=== PATIENT | female | born 1955 | race Caucasian/White ===

== ENCOUNTER → 2017-11-23 | Outpatient (CLI) | payer OTHER ==
[2017-11-23 11:32] LABS: BASOPHILS ABSOLUTE AUTO 0.07 K/mm3 (0.00-0.23); BASOPHILS PERCENT AUTO 1 % (0-2); EOSINOPHILS ABSOLUTE AUTO 0.04 K/mm3 (0.00-0.68); EOSINOPHILS PERCENT AUTO 1 % (0-6); Hematocrit 42.1 % (33.0-51.0); Hemoglobin 14.5 g/dL (11.5-16.0); IMMATURE GRAN ABSOLUTE AUTO 0.04 K/mm3 (0.00-0.10); IMMATURE GRAN PERCENT AUTO 1 % (0-1); LYMPHOCYTES ABSOLUTE AUTO 0.71 K/mm3 (0.84-5.20); LYMPHOCYTES PERCENT AUTO 8 % (21-46); MONOCYTES ABSOLUTE AUTO 0.31 K/mm3 (0.16-1.47); MONOCYTES PERCENT AUTO 4 % (4-13); Mean Corpuscular HGB Conc 34.4 g/dL (31.5-36.5); Mean Corpuscular Volume 96 fL (80-100); Mean Platelet Volume 9.2 fL (9.1-12.4); NEUTROPHILS ABSOLUTE AUTO 7.64 K/mm3 (1.96-9.15); NEUTROPHILS PERCENT AUTO 87 % (41-73); Platelet Count 265 K/mm3 (150-400); RDW Standard Deviation 46.1 fL (35.1-46.3); White Blood Cell Count 8.81 K/mm3 (4.00-11.30)
[2017-11-23 11:36] LABS: Anion Gap 12 mmol/L (6-16); Blood Urea Nitrogen 5 mg/dL (8-24); CO2, Blood 29 mmol/L (21-32); Calcium, Blood 9.4 mg/dL (8.5-10.1); Chloride, Blood 101 mmol/L (98-108); Creatinine, Blood 0.71 mg/dL (0.40-1.00); Glomerular Filtration Rate >60 (60-); Glucose, Blood 113 mg/dL (70-99); Potassium, Blood 3.6 mmol/L (3.5-5.5); Sodium, Blood 142 mmol/L (136-145)
== END | disposition home or self-care (01) ==
LOC: LAB EV 11:26 → LAB SHORT 11:26
PROVIDERS: Physician Assistant Surgical
DX: R42 Dizziness and giddiness (principal)
CPT/HCPCS: 80048; 85025

== ENCOUNTER 2024-10-03 17:29 | Emergency (ER) | payer MEDICARE ==
[~2024-10-03] VITALS: Ht 149.9 cm; Wt 56.7 kg
[2024-10-03 17:53] LABS: BASOPHILS ABSOLUTE AUTO 0.07 K/mm3 (0.00-0.23); BASOPHILS PERCENT AUTO 1 % (0-2); EOSINOPHILS ABSOLUTE AUTO 0.05 K/mm3 (0.00-0.68); EOSINOPHILS PERCENT AUTO 1 % (0-6); Hematocrit 31.1 % (33.0-51.0); Hemoglobin 9.3 g/dL (11.5-16.0); IMMATURE GRAN ABSOLUTE AUTO 0.03 K/mm3 (0.00-0.10); IMMATURE GRAN PERCENT AUTO 0 % (0-1); LYMPHOCYTES PERCENT AUTO 17 % (21-46); MONOCYTES PERCENT AUTO 6 % (4-13); Mean Corpuscular HGB 29.5 pg (26.0-34.0); Mean Corpuscular HGB Conc 29.9 g/dL (31.5-36.5); Mean Corpuscular Volume 99 fL (80-100); Mean Platelet Volume 9.6 fL (9.1-12.4); NEUTROPHILS ABSOLUTE AUTO 5.43 K/mm3 (1.96-9.15); NEUTROPHILS PERCENT AUTO 76 % (41-73); Platelet Count 215 K/mm3 (150-400); RDW Coefficient Variation 13.7 % (11.7-14.2); RDW Standard Deviation 49.2 fL (35.1-46.3); Red Blood Cell Count 3.15 M/mm3 (3.80-5.20); White Blood Cell Count 7.18 K/mm3 (4.00-11.30)
[2024-10-03 18:15] LABS: Albumin/Globulin Ratio 0.9 (0.8-1.8); Bilirubin, Total 0.3 mg/dL (0.1-1.0); Bun/Creatinine Ratio 10.5 (12.0-20.0); Calcium, Blood 8.9 mg/dL (8.5-10.1); Creatinine, Blood 0.67 mg/dL (0.40-1.00); Globulin, Blood 3.3 g/dL (2.2-4.0); Potassium, Blood 3.4 mmol/L (3.5-5.5); Total Protein, Blood 6.3 g/dL (6.4-8.2)
[2024-10-03] MEDS ORDERED: LIPITOR80 MG PO (18:36)
[2024-10-03] MEDS ORDERED: IPRAT-ALBUT 0.5-3 ML IH (18:36)
[2024-10-03] MEDS ORDERED: FOLI1 PO (18:36)
[2024-10-03] MEDS ORDERED: LOSA50 PO (18:36)
[2024-10-03 18:37] LABS: Influenza A, PCR NEGATIVE (NEGATIVE); Influenza B, PCR NEGATIVE (NEGATIVE); Resp Syncytial Virus, PCR NEGATIVE (NEGATIVE); SARS-Cov-2 (COVID-19) PCR, MMC NEGATIVE (NEGATIVE)
[2024-10-03] MEDS ORDERED: B-1100 M1 PO (18:37)
[2024-10-03] MEDS ORDERED: ALBU8HFA2 INH (18:37)
[2024-10-03] MEDS ORDERED: Albuterol 2.5 MG/3 ML VIAL INH SCH (19:25)
[2024-10-03] MEDS ORDERED: MethylPREDNISolone Sod Succ 125 MG Vial IV ONE (19:25)
[2024-10-03] MEDS ORDERED: Prednisone20 MG PO (22:02)
[2024-10-03] MEDS ORDERED: HYDHCL25 PO (22:02)
[2024-10-03 23:37] VITALS: BP 138/84
[2024-10-04] MEDS ORDERED: SULFAMETHOXAZO1 EAC1 PO (15:55)
[2024-10-05] MEDS ORDERED: HYDR10 PO (12:42)
== END 2024-10-04 00:11 | disposition home or self-care (01) ==
LOC: ER 17:29
PROVIDERS: Emergency Medicine
DX: J44.9 Chronic obstructive pulmonary disease, unspecified (principal)
CPT/HCPCS: 0241U; 71045; 80053; 83880; 84484; 85025; 93005; 93010; 96374; 99285-25; J2919

== ENCOUNTER 2024-10-04 13:02 | Inpatient (IN) | payer OTHER ==
[~2024-10-04] VITALS: Ht 160 cm; Wt 56.1 kg
[~2024-10-04 13:02] MED LIST: ALBU8HFA2 INH; B-1100 M1 PO; FOLI1 PO; HYDHCL25 PO; IPRAT-ALBUT 0.5-3 ML IH; LIPITOR80 MG PO; LOSA50 PO; Prednisone20 MG PO
[2024-10-04 14:36] LABS: Base Excess Venous 5.5 mmol/L; Bicarbonate Venous 27.4 mmol/L (24.0-30.0); PCO2 Venous 87.2 mmHg (38-42)
[2024-10-04 14:38] LABS: BASOPHILS ABSOLUTE AUTO 0.03 K/mm3 (0.00-0.23); BASOPHILS PERCENT AUTO 1 % (0-2); EOSINOPHILS ABSOLUTE AUTO 0.02 K/mm3 (0.00-0.68); EOSINOPHILS PERCENT AUTO 1 % (0-6); Hematocrit 34.9 % (33.0-51.0); Hemoglobin 10.6 g/dL (11.5-16.0); IMMATURE GRAN PERCENT AUTO 3 % (0-1); LYMPHOCYTES ABSOLUTE AUTO 0.37 K/mm3 (0.84-5.20); LYMPHOCYTES PERCENT AUTO 10 % (21-46); MONOCYTES ABSOLUTE AUTO 0.19 K/mm3 (0.16-1.47); MONOCYTES PERCENT AUTO 5 % (4-13); Mean Corpuscular HGB 29.4 pg (26.0-34.0); Mean Corpuscular HGB Conc 30.4 g/dL (31.5-36.5); Mean Corpuscular Volume 97 fL (80-100); NEUTROPHILS ABSOLUTE AUTO 3.09 K/mm3 (1.96-9.15); NEUTROPHILS PERCENT AUTO 81 % (41-73); RDW Coefficient Variation 13.7 % (11.7-14.2); RDW Standard Deviation 49.1 fL (35.1-46.3)
[2024-10-04 14:53] LABS: Albumin/Globulin Ratio 0.8 (0.8-1.8); Bilirubin, Total 0.2 mg/dL (0.1-1.0); Bun/Creatinine Ratio 12.1 (12.0-20.0); Creatinine, Blood 1.16 mg/dL (0.40-1.00); Globulin, Blood 3.8 g/dL (2.2-4.0); Potassium, Blood 4.6 mmol/L (3.5-5.5); Total Protein, Blood 6.8 g/dL (6.4-8.2)
[2024-10-04 14:57] LABS: Mean Platelet Volume 10.3 fL (9.1-12.4); Platelet Count 224 K/mm3 (150-400)
[2024-10-04] MEDS ORDERED: Azithromycin 500 MG in NS 250 ML IV ONE (15:15)
[2024-10-04] MEDS ORDERED: CefTRIAXone Sodium 1,000 MG in NS 100 ML IV ONE (15:15)
[2024-10-04] MEDS ORDERED: SULFAMETHOXAZO1 EAC1 PO (15:55)
[2024-10-04] MEDS ORDERED: Ipratropium/Albuterol SulF 2.5-0.5MG/3 ML Amp INH SCH (16:10)
[2024-10-04] MEDS ORDERED: Albuterol 2.5 MG/3 ML VIAL INH PRN (16:10)
[2024-10-04 16:36] LABS: Base Excess Venous 6.5 mmol/L; Bicarbonate Venous 29.2 mmol/L (24.0-30.0); PCO2 Venous 60.4 mmHg (38-42); pH Blood Venous 7.34 (7.34-7.37)
[2024-10-04] MEDS ORDERED: MethylPREDNISolone Sod Succ 125 MG Vial IV SCH (18:00)
[2024-10-04 18:19] VITALS: BP 109/55
--- NOTE | 2024-10-04 18:52 | NUR ---
ASSUMPTION OF CARE PATIENT ARRIVED TO UNIT AT 1814 VIA GURNEY FROM ER. PATIENT IS A&O X2, CONFUSED AT BASELINE, IS AT BEDSIDE. PATIENT ON BIPAP, FIO2 30%, SPO2 >90%. TELE, NORMAL SINUS IN THE 70'S. PATIENT DENIES PRESENCE CHEST PAIN OR PRESSURE AT THIS TIME. DENIES ABODMINAL PAIN OR NAUSEA. PUREWICK CATHETER IN PLACE, DRAINING TO SUCTION. PRESENCE OF PRESSURE INJURY NOTED ON COCCYX AND LEFT ELBOW, MEPILEX DRESSINGS IN PLACE AND INTACT, PICTURES IN CHART. PATIENT REPORTS NEUROPATHY IN BILATERAL FEET. PATIENT UNABLE TO REPOSITION OR AMBULATE INDEPENDENTLY. BED IN LOWEST POSITION, BED ALARM ON, CALL LIGHT WITHIN REACH.
[2024-10-04 19:25] LABS: Adenovirus Not Detected (NOT DETECT); Bordetella pertussis Not Detected (NOT DETECT); Chlamydophila pneumoniae Not Detected (NOT DETECT); Coronavirus 229E Not Detected (NOT DETECT); Coronavirus HKU1 Not Detected (NOT DETECT); Coronavirus NL63 Not Detected (NOT DETECT); Coronavirus OC43 Not Detected (NOT DETECT); Human Metapneumovirus Not Detected (NOT DETECT); Human Rhinovirus/Enterovirus Not Detected (NOT DETECT); Influenza A/2009-H1 Not Detected (NOT DETECT); Influenza A/H1 Not Detected (NOT DETECT); Influenza A/H3 Not Detected (NOT DETECT); Influenza B Not Detected (NOT DETECT); Mycoplasma pneumoniae Not Detected (NOT DETECT); Parainfluenza Virus 1 Not Detected (NOT DETECT); Parainfluenza Virus 2 Not Detected (NOT DETECT); Parainfluenza Virus 3 Not Detected (NOT DETECT); Parainfluenza Virus 4 Not Detected (NOT DETECT); Respiratory Syncytial Virus Not Detected (NOT DETECT); SARS-Cov-2 (COVID-19), BioFire Not Detected (NOT DETECT)
[2024-10-04 19:36] VITALS: BP 118/68
--- NOTE | 2024-10-04 19:47 | NUR ---
ASSUMED CARE OF THIS PATIENT AT 1900. PT IS SITTING UP IN BED WITH BIPAP ON SATURATION IS 98% ON CONTINUS PULSE OX. PT WAS GIVEN SHIFT BREAK FROM BIPAP TO CLEAN MOUTH OUT AND APPLY CHAPSTICK PT IS CURRENTLY NPO. SHE SEEMS TO BE JESSIE BIPAP WELL, IS AT BEDSIDE HELPING TO REORIENT PATIENT AT TIMES. SHE IS ORIENTED TO SELF AND ONLY. CALL LIGHT IS IN REACH.
[2024-10-04] MEDS ORDERED: Atorvastatin 40 MG Tab PO SCH (21:00)
[2024-10-04] MEDS ORDERED: Lactobacil 2-S.Thermo-Bifido 1 1 Cap PO SCH (21:00)
[2024-10-04 23:43] LABS: Base Excess Venous 6.9 mmol/L; Bicarbonate Venous 29.8 mmol/L (24.0-30.0); PCO2 Venous 50.8 mmHg (38-42)
[2024-10-05 00:06] VITALS: BP 106/52
[2024-10-05 03:38] LABS: Base Excess Venous 6.4 mmol/L; Bicarbonate Venous 29.3 mmol/L (24.0-30.0); PCO2 Venous 61.2 mmHg (38-42); pH Blood Venous 7.33 (7.34-7.37)
[2024-10-05 03:39] LABS: BASOPHILS ABSOLUTE AUTO 0.01 K/mm3 (0.00-0.23); BASOPHILS PERCENT AUTO 0 % (0-2); EOSINOPHILS PERCENT AUTO 0 % (0-6); Hematocrit 28.9 % (33.0-51.0); Hemoglobin 8.8 g/dL (11.5-16.0); IMMATURE GRAN ABSOLUTE AUTO 0.02 K/mm3 (0.00-0.10); IMMATURE GRAN PERCENT AUTO 0 % (0-1); LYMPHOCYTES ABSOLUTE AUTO 0.32 K/mm3 (0.84-5.20); LYMPHOCYTES PERCENT AUTO 4 % (21-46); MONOCYTES ABSOLUTE AUTO 0.07 K/mm3 (0.16-1.47); MONOCYTES PERCENT AUTO 1 % (4-13); Mean Corpuscular HGB 29.6 pg (26.0-34.0); Mean Corpuscular HGB Conc 30.4 g/dL (31.5-36.5); Mean Corpuscular Volume 97 fL (80-100); Mean Platelet Volume 10.1 fL (9.1-12.4); NEUTROPHILS ABSOLUTE AUTO 6.86 K/mm3 (1.96-9.15); NEUTROPHILS PERCENT AUTO 94 % (41-73); Platelet Count 199 K/mm3 (150-400); RDW Coefficient Variation 13.8 % (11.7-14.2); RDW Standard Deviation 49.2 fL (35.1-46.3); Red Blood Cell Count 2.97 M/mm3 (3.80-5.20); White Blood Cell Count 7.28 K/mm3 (4.00-11.30)
[2024-10-05 03:43] VITALS: BP 102/59
[2024-10-05 03:59] LABS: Albumin, Blood 2.7 g/dL (3.4-5.0); Albumin/Globulin Ratio 0.9 (0.8-1.8); Bilirubin, Total 0.3 mg/dL (0.1-1.0); Bun/Creatinine Ratio 15.1 (12.0-20.0); Calcium, Blood 8.7 mg/dL (8.5-10.1); Creatinine, Blood 1.59 mg/dL (0.40-1.00); Globulin, Blood 3.1 g/dL (2.2-4.0); Potassium, Blood 4.3 mmol/L (3.5-5.5); Total Protein, Blood 5.8 g/dL (6.4-8.2)
--- NOTE | 2024-10-05 06:17 | NUR ---
TO ASSIST WITH KEEPING PT COMFORTABLE AND REORIENTING HER TO PLACE AND SITUATION. VBG'S ARE IMPROVING, SHE TOOK A BREAK OFF THE BIPAP AND CO2 DID HOWEVER RISE AGAIN AND SHE WAS PLACED BACK ON BIPAP. PT JESSIE BIPAP WELL AND HAS BEEN ABLE TO REST ON AND OFF BETWEEN CARES. PT WEARS 2 LITERS NC AT BASELINE. SHE HAS A REDDENED AREA ON HER COCCYX THAT IS BLANCHABLE MEPELEX DRESSING WAS PLACED ON IT AND Q2 REPOSTIONING WAS DONE T/O THE NIGHT. MEPELEX DRESSING ALSO OVER L ELBOW WERE PT HAD/HAS MERSA. PT IS ON CONTACT PERCAUSTIONS. PURWICK IS IN PLACE DRAINING TO SUCTION. SCD ARE IN PLACE. BED IN LOWEST POSTION, SIDERAILS UP X3, CALL LIGHT IN REACH. WILL CONTINUE WITH PLAN OF CARE AND REPORT TO ONCOMING RN.
[2024-10-05 07:37] VITALS: BP 118/63
[2024-10-05] MEDS ORDERED: Azithromycin 500 MG in NS 250 ML IV SCH (09:00)
[2024-10-05] MEDS ORDERED: Enoxaparin 40 MG/0.4 ML SYR SC SCH (09:00)
[2024-10-05] MEDS ORDERED: Losartan Potassium 50 MG Tab PO SCH (09:00)
[2024-10-05] MEDS ORDERED: CefTRIAXone Sodium 1,000 MG in NS 100 ML IV SCH (09:00)
[2024-10-05] MEDS ORDERED: Furosemide 10 MG/ML 4ML Vial IV SCH (10:00)
[2024-10-05 11:21] VITALS: BP 121/55
[2024-10-05] MEDS ORDERED: HYDR10 PO (12:42)
[2024-10-05] MEDS ORDERED: Furosemide 10 MG / ML 2ML Vial IV SCH (14:00)
[2024-10-05 15:34] VITALS: BP 116/63
--- NOTE | 2024-10-05 16:56 | NUR ---
SHIFT SUMMARY PT REMAINS ALERT AND ORIENTED TO SELF, PLACE AND FAMILY. PT HAS BEEN OFF BIPAP SINCE ASSUMPTION OF CARE AND MAINTAINING SATS >90% ON 2L NC. HR HAS BEEN NSR. PT HAS DENIED ANY PAIN THIS SHIFT. PT HAS BEEN INCONTINENT OF URINE AND PUREWICK DEVICE IN PLACE. PT PROVIDED BED BATH TODAY. SPOUSE AT BEDSIDE MOST OF SHIFT. WILL CONTINUE PLAN OF CARE AND REPORT OFF TO ONCOMING RN
[2024-10-05 19:57] VITALS: BP 125/59
[2024-10-06 00:05] VITALS: BP 115/57
[2024-10-06] MEDS ORDERED: Zolpidem Tartrate 5 MG Tab PO PRN (01:20)
[2024-10-06 03:39] VITALS: BP 121/58
[2024-10-06 04:03] LABS: BASOPHILS PERCENT AUTO 0 % (0-2); EOSINOPHILS PERCENT AUTO 0 % (0-6); Hematocrit 26.5 % (33.0-51.0); Hemoglobin 8.3 g/dL (11.5-16.0); IMMATURE GRAN ABSOLUTE AUTO 0.03 K/mm3 (0.00-0.10); IMMATURE GRAN PERCENT AUTO 0 % (0-1); LYMPHOCYTES ABSOLUTE AUTO 0.25 K/mm3 (0.84-5.20); LYMPHOCYTES PERCENT AUTO 4 % (21-46); MONOCYTES ABSOLUTE AUTO 0.11 K/mm3 (0.16-1.47); MONOCYTES PERCENT AUTO 2 % (4-13); Mean Corpuscular HGB 28.9 pg (26.0-34.0); Mean Corpuscular HGB Conc 31.3 g/dL (31.5-36.5); Mean Platelet Volume 10.5 fL (9.1-12.4); NEUTROPHILS ABSOLUTE AUTO 6.39 K/mm3 (1.96-9.15); NEUTROPHILS PERCENT AUTO 94 % (41-73); Platelet Count 225 K/mm3 (150-400); RDW Standard Deviation 47.2 fL (35.1-46.3); Red Blood Cell Count 2.87 M/mm3 (3.80-5.20); White Blood Cell Count 6.78 K/mm3 (4.00-11.30)
[2024-10-06 04:27] LABS: Bun/Creatinine Ratio 18.5 (12.0-20.0); Calcium, Blood 8.5 mg/dL (8.5-10.1); Creatinine, Blood 1.84 mg/dL (0.40-1.00); Potassium, Blood 3.4 mmol/L (3.5-5.5)
[2024-10-06 04:29] LABS: Mean Corpuscular Volume 92 fL (80-100)
--- NOTE | 2024-10-06 05:13 | NUR ---
NURSE NOTE DR. JOSEPH CALLED VIA PHONE ABOUT K 3.4, SHE WILL REFER TO DAY TEAM FOR REPLACEMENT. NO ORDERS AT THIS TIME.
--- NOTE | 2024-10-06 05:56 | NUR ---
SHIFT SUMMARY PT IS A+O X2 (PERSON AND SELF) APOUSE HAS REMAINED AT BEDSIDE T/O THE NIGHT TO REORIENTE HER AND ASSIST WITH BIPAP COMPLIANCE. PT HAS BEEN ON BIPAP MOST OF THE NIGHT W/ BREAKS FOR WATER AND ORAL CARE. SATS ABOVE 90% DURING SHIFT, SHE IS CURRENTLY ON 1L NC SATTING AT 93% SITTING UP IN BED WATCHING TV. SHE HAS SLEPT ON AND OFF T/O THE NIGHT. TELE IN PLACE SHOWING NSR RATE OF 79. PURWICK AND BRIEF CHANGED, HENNY CARE PROVIDED. PT IS INCONTIENT AND PURWICK IS IN PLACE W/ 340 mls OUT. BRIEF WAS WET WHEN CHANGES EARLIER IN THE SHIFT. DENIES PAIN OF ANY KIND. BED IN LOWEST POSTION, SIDE RAILS UP X2, WILL CONTINUE WITH PLAN OF CARE AND REPORT TO ONCOMING RN.
[2024-10-06 08:11] VITALS: BP 141/65
[2024-10-06] MEDS ORDERED: Spironolactone 12.5 MG TAB PO SCH (09:00)
[2024-10-06] MEDS ORDERED: Empagliflozin 10 MG TAB PO SCH (09:00)
[2024-10-06] MEDS ORDERED: Enoxaparin 30 MG/0.3 ML SYR SC SCH (09:00)
[2024-10-06 11:37] VITALS: BP 157/70
[2024-10-06 15:11] VITALS: BP 134/63
--- NOTE | 2024-10-06 16:56 | NUR ---
SHIFT SUMMARY MENTATION REMAINS UNCHANGED. BP STABLE. O2 SATS REMAIN ABOVE 90% ON 1L NC. PT HAS BEEN OFF OF BIPAP ALL SHIFT. PT ABLE TO REPOSITION HERSELF IN THE BED AT TIMES. PT HAD LARGE INCONTINENT BM THIS AM AND BED BATH AND LINEN CHANGE PROVIDED. PT HAS BEEN INCONTINENT OF URINE ALL SHIFT WITH PUREWICK DEVICE IN PLACE. SPOUSE AT BEDSIDE ALL SHIFT. WILL CONTINUE PLAN OF CARE AND REPORT OFF TO ONCOMING RN
[2024-10-06 20:54] VITALS: BP 129/63
[2024-10-06] MEDS ORDERED: Atorvastatin 40 MG Tab PO SCH (21:00)
[2024-10-06] MEDS ORDERED: Doxycycline Hyclate 100 MG TAB PO SCH (21:00)
[2024-10-06] MEDS ORDERED: MethylPREDNISolone Sod Succ 125 MG Vial IV SCH (21:00)
[2024-10-07 00:39] VITALS: BP 127/64
[2024-10-07 04:10] LABS: Base Excess Venous 15.5 mmol/L; PCO2 Venous 42.5 mmHg (38-42)
[2024-10-07 04:11] LABS: pH Blood Venous 7.56 (7.34-7.37)
[2024-10-07 04:32] VITALS: BP 143/80
[2024-10-07 04:52] LABS: Hematocrit 26.9 % (33.0-51.0); Hemoglobin 8.5 g/dL (11.5-16.0); Mean Corpuscular HGB 29.1 pg (26.0-34.0); Mean Corpuscular HGB Conc 31.6 g/dL (31.5-36.5); Mean Corpuscular Volume 92 fL (80-100); Mean Platelet Volume 10.2 fL (9.1-12.4); Platelet Count 227 K/mm3 (150-400); RDW Coefficient Variation 14.2 % (11.7-14.2); RDW Standard Deviation 48.1 fL (35.1-46.3); Red Blood Cell Count 2.92 M/mm3 (3.80-5.20); White Blood Cell Count 8.19 K/mm3 (4.00-11.30)
[2024-10-07 05:10] LABS: Albumin, Blood 2.8 g/dL (3.4-5.0); Anion Gap 6 mmol/L (3-11); Blood Urea Nitrogen 29 mg/dL (8-24); Bun/Creatinine Ratio 18.5 (12.0-20.0); CO2, Blood 35 mmol/L (21-32); Calcium, Blood 8.6 mg/dL (8.5-10.1); Chloride, Blood 100 mmol/L (98-108); Creatinine, Blood 1.57 mg/dL (0.40-1.00); Glomerular Filtration Rate 35 (60-); Glucose, Blood 92 mg/dL (70-99); Magnesium, Blood 2.3 mg/dL (1.6-2.4); Phosphorus, Blood 1.8 mg/dL (2.5-4.9); Potassium, Blood 3.1 mmol/L (3.5-5.5); Sodium, Blood 138 mmol/L (136-145)
[2024-10-07] MEDS ORDERED: Potassium Chloride 20 MEQ TabCR PO ONE (07:25)
--- NOTE | 2024-10-07 07:31 | NUR ---
SHIFT SUMMARY: PT IS A&OX2-3 PLEASANT AND COOPERATIVE WITH CARE. AT BEDSIDE T/O THIS SHIFT, ATTENTIVE TO PT. VSS, ON 1L NC SATTING >95%. SR 70'S-80'S. DENIES PAIN. X1 ASSIST, NOOB THIS SHIFT. WICKING SYSTEM IN PLACE, VOIDING SMALL AMOUNTS OF YELLOW URINE. NO BM THIS SHIFT. BED IN LOWEST POSITION, CALL LIGHT WITHIN REACH. CONTACT PRECAUTIONS MAINTAINED FOR HX OF MRSA.
[2024-10-07 08:38] VITALS: BP 125/64
[2024-10-07] MEDS ORDERED: PredniSONE 20 MG Tab PO SCH (09:00)
[2024-10-07 11:17] VITALS: BP 147/73
[2024-10-07] MEDS ORDERED: DOXY100 PO (11:48)
[2024-10-07] MEDS ORDERED: JARDIANCE10 MG PO (11:49)
[2024-10-07] MEDS ORDERED: SPIR25 PO (11:50)
[2024-10-07] MEDS ORDERED: PRED20 PO (11:54)
--- NOTE | 2024-10-07 12:30 | NUR ---
SHIFT SUMMARY/DISCHARGE PATIENT IS ALERT TO PERSON, SELF AND . PATIENT IS ABLE TO MAKE HER NEEDS KNOWN. PATIENT REPORTS FEELING WELL AND IS READY TO GO HOME. DR. HOGAN IN AT BEDSIDE AND PATIENT IS MEDICALLY STABLE AND READY FOR DISCHARGE TODAY. PATIENTS VSS. PATIENT 1P ASSIST TO BSC. DISCHARGE INSTRUCTIONS AND MEDICATIONS REVIEWED WITH PATIENT AND PATIENTS WITH REPORTED UNDERSTANDING. PATIENT AND DENIED QUESTIONS AT THIS TIME. PATIENT ASSISTED TO BSC AND DRESSED BY COMPRESSOR STATION ENGINEER CHIEF. LINES REMOVED. PATIENT IS ON 2LPM SATTING AT 96%. PATIENT WILL BE LEAVING BY PERSONAL CARE WITH , HAS PATIENTS PORTABLE OXYGEN IN CAR. PATIENT IS BEING TAKEN OUT TO CAR VIA WHEEL CHAIR.
== END 2024-10-07 12:51 | disposition home or self-care (01) | DRG 871 ==
LOC: ER 13:02 → ERHOLD 16:03 → PCU 16:03
PROVIDERS: Emergency Medicine; Internal Medicine; Student in an Organized Health Care Education/Training Program; ADMIT Family Medicine
PROC: 5A09457 Assistance with Respiratory Ventilation, 24-96 Consecutive Hours, Continuous Positive Airway Pressure (ICD-10-PCS; principal; 2024-10-04)
DX: A41.9 Sepsis, unspecified organism (principal); I50.31 Acute diastolic (congestive) heart failure; J96.01 Acute respiratory failure with hypoxia; J96.02 Acute respiratory failure with hypercapnia; J44.0 Chronic obstructive pulmonary disease with (acute) lower respiratory infection; J44.1 Chronic obstructive pulmonary disease with (acute) exacerbation; N17.9 Acute kidney failure, unspecified; E87.29 Other acidosis; J43.9 Emphysema, unspecified; R65.20 Severe sepsis without septic shock; Z99.81 Dependence on supplemental oxygen; Z79.52 Long term (current) use of systemic steroids; Z79.899 Other long term (current) drug therapy
CPT/HCPCS: 0202U; 36415; 71045; 80048; 80053; 80069; 82570; 82803; 83605; 83735; 83880; 84145; 84300; 85025; 85027; 93005; 93010; 93306; 94640; 94660; 94762; 99285-25; A9270; J0456; J0696; J1650; J1938; J2919; J7050; J7512

== ENCOUNTER 2024-10-10 09:09 | Inpatient (IN) | payer OTHER ==
[~2024-10-10] VITALS: Ht 160 cm; Wt 56.9 kg
[2024-10-10] VITALS (39 sets, daily range): BP systolic 77–117; BP diastolic 50–76
[~2024-10-10 09:09] MED LIST changes: +DOXY100 PO; +HYDR10 PO; +JARDIANCE10 MG PO; +PRED20 PO; +SPIR25 PO; +SULFAMETHOXAZO1 EAC1 PO
[2024-10-10] MEDS ORDERED: NS 1,000 ML IV SCH (09:25)
[2024-10-10 09:45] LABS: BASOPHILS ABSOLUTE AUTO 0.04 K/mm3 (0.00-0.23); BASOPHILS PERCENT AUTO 0 % (0-2); EOSINOPHILS PERCENT AUTO 0 % (0-6); Hematocrit 42.6 % (33.0-51.0); Hemoglobin 12.3 g/dL (11.5-16.0); IMMATURE GRAN ABSOLUTE AUTO 0.25 K/mm3 (0.00-0.10); IMMATURE GRAN PERCENT AUTO 1 % (0-1); LYMPHOCYTES ABSOLUTE AUTO 0.43 K/mm3 (0.84-5.20); LYMPHOCYTES PERCENT AUTO 2 % (21-46); MONOCYTES ABSOLUTE AUTO 0.71 K/mm3 (0.16-1.47); MONOCYTES PERCENT AUTO 4 % (4-13); Mean Corpuscular HGB 29.4 pg (26.0-34.0); Mean Corpuscular HGB Conc 28.9 g/dL (31.5-36.5); Mean Corpuscular Volume 102 fL (80-100); Mean Platelet Volume 10.7 fL (9.1-12.4); NEUTROPHILS ABSOLUTE AUTO 18.26 K/mm3 (1.96-9.15); NEUTROPHILS PERCENT AUTO 93 % (41-73); NRBC ABSOLUTE 0.03 K/mm3 (0.00-0.02); NRBC Auto 0.2 /100 WBC (0.0-0.2); Platelet Count 259 K/mm3 (150-400); RDW Coefficient Variation 14.1 % (11.7-14.2); RDW Standard Deviation 52.5 fL (35.1-46.3); Red Blood Cell Count 4.19 M/mm3 (3.80-5.20); White Blood Cell Count 19.69 K/mm3 (4.00-11.30)
[2024-10-10 09:50] LABS: PCO2 Venous > 105 mmHg (38-42); pH Blood Venous 7.14 (7.34-7.37)
[2024-10-10 09:51] LABS: Base Excess Venous 7.8 mmol/L
[2024-10-10 10:30] LABS: Influenza A, PCR NEGATIVE (NEGATIVE); Influenza B, PCR NEGATIVE (NEGATIVE); Resp Syncytial Virus, PCR NEGATIVE (NEGATIVE); SARS-Cov-2 (COVID-19) PCR, MMC NEGATIVE (NEGATIVE)
[2024-10-10] MEDS ORDERED: NS 250 ML IV SCH (10:45)
[2024-10-10 11:08] LABS: Base Excess Venous 6.8 mmol/L; Bicarbonate Venous 29.5 mmol/L (24.0-30.0); PCO2 Venous 55.2 mmHg (38-42); pH Blood Venous 7.37 (7.34-7.37)
[2024-10-10] MEDS ORDERED: Bisacodyl 10 MG Supp PR PRN (12:00)
[2024-10-10] MEDS ORDERED: Prochlorperazine Edisylate 10 mg Vial IV PRN (12:05)
[2024-10-10] MEDS ORDERED: TraZODone HCl 50 MG Tab PO PRN (12:05)
[2024-10-10] MEDS ORDERED: Magnesium Hydroxide Conc 10 ML UDC PO PRN (12:05)
[2024-10-10] MEDS ORDERED: Ipratropium/Albuterol SulF 2.5-0.5MG/3 ML Amp INH SCH (12:10)
[2024-10-10] MEDS ORDERED: MethylPREDNISolone Sod Succ 125 MG Vial IV SCH (12:10)
[2024-10-10] MEDS ORDERED: Potassium Chloride 40 MEQ in NS 250 ML IV ONE (12:10)
[2024-10-10] MEDS ORDERED: Mometasone/Formoterol MDI 200/5 mcg 13 GM INH SCH (12:30)
[2024-10-10 12:55] LABS: Anti-Xa UFH, PHA Monitoring <0.10 IU/mL; International Normalized Ratio 1.16; Prothrombin Time Results 12.3 Sec (9.7-11.5)
[2024-10-10] MEDS ORDERED: Furosemide 10 MG/ML 4ML Vial IV ONE (13:00)
[2024-10-10] MEDS ORDERED: Heparin Sodium,Porcine/0.5 NS 500 ML IV SCH (13:00)
[2024-10-10] MEDS ORDERED: Heparin Sodium 5000 Units/ML 1ML MDV IV ONE (13:00)
--- NOTE | 2024-10-10 14:16 | NUR ---
ADMIT PT ARRIVED TO ICU 5 VIA ER BED AT 1315. PT IS AWAKE AND ALERT, BUT CONFUSED. PT UNABLE TO ANSWER QUESTIONS OR FOLLOW COMMANDS. PT COMPLAINS OF SOB. PT ON 4L O2 NC. SPO2 >92%. LEVOPHED PLACED ON SB UPON ARRIVAL. MAP >65. FITZGERALD IN PLACE WITH YELLOW URINE OUTPUT NOTED. PT SPOUSE AT BEDSIDE. WILL CONTINUE TO MONITOR.
[2024-10-10 15:20] LABS: Albumin, Blood 3.1 g/dL (3.4-5.0); Albumin/Globulin Ratio 0.9 (0.8-1.8); Bilirubin, Total 0.3 mg/dL (0.1-1.0); Bun/Creatinine Ratio 23.2 (12.0-20.0); Calcium, Blood 8.4 mg/dL (8.5-10.1); Creatinine, Blood 1.85 mg/dL (0.40-1.00); Globulin, Blood 3.6 g/dL (2.2-4.0); Total Protein, Blood 6.7 g/dL (6.4-8.2)
[2024-10-10 17:05] LABS: Bun/Creatinine Ratio 25.4 (12.0-20.0); Calcium, Blood 8.4 mg/dL (8.5-10.1); Creatinine, Blood 1.81 mg/dL (0.40-1.00); Potassium, Blood 4.4 mmol/L (3.5-5.5)
--- NOTE | 2024-10-10 17:40 | NUR ---
SHIFT SUMMARY PT REMAINS DROWSEY, BUT EASILY AROUSES TO VERBAL STIMULI. PT IS CONFUSED AND SPEECH NONSENSICAL AT TIMES. PT ABLE TO SQUEEZE HANDS UPON COMMAND. PT ON 2L O2 NC. PICC PLACED TO LANE. LEVOPHED INFUSING AT 4 MCG/MIN AND HEPARIN AT 18 UNIT/KG/HR. FITZGERALD IN PLACE WITH SMALL AMOUNT OF DARK YELLOW URINE OUTPUT NOTED AFTER IV LASIX DOSE. VITAL SIGNS STABLE. PT SPOUSE AT BEDSIDE MOST OF THIS AFTERNOON. PT WITH LOW CBG THIS EVENING. PT ABLE TO TAKE PO ORANGE JUICE WELL. WILL CONTINUE TO MONITOR AND REPORT OFF TO ONCOMING RN.
[2024-10-10] MEDS ORDERED: Lactobacil 2-S.Thermo-Bifido 1 1 Cap PO SCH (21:00)
[2024-10-10] MEDS ORDERED: Famotidine 10 MG/ML 2ML Vial IV SCH (21:00)
[2024-10-10] MEDS ORDERED: Montelukast Sodium 10 MG Tab PO SCH (21:00)
[2024-10-10 22:11] LABS: Bun/Creatinine Ratio 22.6 (12.0-20.0); Calcium, Blood 8.3 mg/dL (8.5-10.1); Creatinine, Blood 1.95 mg/dL (0.40-1.00); Potassium, Blood 4.4 mmol/L (3.5-5.5)
[2024-10-10] MEDS ORDERED: Clarify Drug Order XX ONE (23:20)
[2024-10-11] VITALS (80 sets, daily range): BP systolic 76–128; BP diastolic 49–80
[2024-10-11 00:38] LABS: Albumin, Blood 2.6 g/dL (3.4-5.0); Albumin/Globulin Ratio 0.9 (0.8-1.8); Bilirubin, Total 0.4 mg/dL (0.1-1.0); Calcium, Blood 8.2 mg/dL (8.5-10.1); Creatinine, Blood 1.91 mg/dL (0.40-1.00); Magnesium, Blood 2.1 mg/dL (1.6-2.4); Phosphorus, Blood 4.4 mg/dL (2.5-4.9); Potassium, Blood 4.3 mmol/L (3.5-5.5); Total Protein, Blood 5.6 g/dL (6.4-8.2)
--- NOTE | 2024-10-11 02:54 | NUR ---
PT CHANGED FROM SR IN THE 80S ON THE CRIMINAL DEFENSE LAWYER TO AFIB RVR. DR LACKEY NOTIFIED. ORDERS GIVEN.
[2024-10-11 04:46] LABS: BASOPHILS ABSOLUTE AUTO 0.03 K/mm3 (0.00-0.23); BASOPHILS PERCENT AUTO 0 % (0-2); EOSINOPHILS ABSOLUTE AUTO 0.09 K/mm3 (0.00-0.68); EOSINOPHILS PERCENT AUTO 1 % (0-6); Hematocrit 30.7 % (33.0-51.0); Hemoglobin 9.4 g/dL (11.5-16.0); IMMATURE GRAN ABSOLUTE AUTO 0.12 K/mm3 (0.00-0.10); IMMATURE GRAN PERCENT AUTO 1 % (0-1); LYMPHOCYTES PERCENT AUTO 5 % (21-46); MONOCYTES ABSOLUTE AUTO 0.97 K/mm3 (0.16-1.47); MONOCYTES PERCENT AUTO 5 % (4-13); Mean Corpuscular HGB 29.3 pg (26.0-34.0); Mean Corpuscular HGB Conc 30.6 g/dL (31.5-36.5); Mean Platelet Volume 10.6 fL (9.1-12.4); NEUTROPHILS ABSOLUTE AUTO 16.04 K/mm3 (1.96-9.15); NEUTROPHILS PERCENT AUTO 88 % (41-73); Platelet Count 264 K/mm3 (150-400); RDW Coefficient Variation 14.3 % (11.7-14.2); RDW Standard Deviation 49.7 fL (35.1-46.3); Red Blood Cell Count 3.21 M/mm3 (3.80-5.20); White Blood Cell Count 18.15 K/mm3 (4.00-11.30)
[2024-10-11 05:06] LABS: Albumin, Blood 2.4 g/dL (3.4-5.0); Albumin/Globulin Ratio 0.8 (0.8-1.8); Bilirubin, Total 0.4 mg/dL (0.1-1.0); Bun/Creatinine Ratio 23.4 (12.0-20.0); Calcium, Blood 8.2 mg/dL (8.5-10.1); Creatinine, Blood 1.97 mg/dL (0.40-1.00); Globulin, Blood 2.9 g/dL (2.2-4.0); Magnesium, Blood 2.1 mg/dL (1.6-2.4); Potassium, Blood 4.2 mmol/L (3.5-5.5); Total Protein, Blood 5.3 g/dL (6.4-8.2)
[2024-10-11 05:08] LABS: Mean Corpuscular Volume 96 fL (80-100)
[2024-10-11] MEDS ORDERED: Clarify Drug Order XX ONE (06:10)
--- NOTE | 2024-10-11 06:26 | NUR ---
SHIFT SUMMERY PT HAS BEEN ALERT AND ORIENTED X 3 THIS SHIFT. HEPARIN AND LEVOPHED DRIPS ARE INFUSING, SEE [facility]. SHE HAS BEEN SR AND AFIB AND AFIB W/RVR ON THE PRODUCTION TOOL ENGINEER. SHE WAS GIVEN A 150MG BOLUS OF AMIODARONE BUT DR LACKEY DID NOT WANT TO START AN AMIODARONE DRIP. FITZGERALD CATH IS INTACT PATENT AND DRAINING YELLOW URINE TO GRAVITY. HER STAYED AT BEDSIDE OVERNIGHT. PT HAD NO COMPLAINTS OF PAIN AND HAD NO ACUTE DISTRESS. SHE IS ON 2L NC AND OXYGEN SAT HAVE BEEN >92%.
[2024-10-11] MEDS ORDERED: Loratadine 5 MG/5 ML 5MLUDC PO SCH (09:00)
[2024-10-11] MEDS ORDERED: Enoxaparin 30 MG/0.3 ML SYR SC SCH (09:00)
[2024-10-11] MEDS ORDERED: Furosemide 10 MG/ML 4ML Vial IV SCH (09:00)
[2024-10-11] MEDS ORDERED: Loratadine 10 MG Tab PO SCH (09:00)
[2024-10-11] MEDS ORDERED: Metoprolol Tartrate 25 MG Tab PO SCH (10:00)
[2024-10-11] MEDS ORDERED: Midodrine 5 MG Tab PO SCH (10:00)
--- NOTE | 2024-10-11 17:38 | NUR ---
SHIFT SUMMARY NO ACUTE CHANGES THIS SHIFT. PT IS ALERT AND ORIENTED WHEN AWAKE, WITH SOME FORGETFULNESS AT TIMES. PT SLEEPING OFF AND ON THROUGHOUT THE AFTERNOON. PT HAS DENIED DISCOMFORT AND SOB. PT TITRATED OFF LEVOPHED THIS SHIFT. VITALS SIGNS HAVE REMAINED STABLE. PT ON 1L O2 NC. PT TRANSITIONED OFF HEPARIN GTT TO ORAL ANTICOAGULATION THIS EVENING. PICC TO LANE SALINE LOCKED. PT TAKING IN PO INTAKE WELL, BUT HAS POOR APPETITE. FITZGERALD REMAINS IN PLACE WITH YELLOW URINE OUTPUT NOTED. PT SPOUSE AT BEDSIDE MOST OF THIS SHIFT. WILL CONTINUE TO MONITOR AND REPORT OFF TO ONCOMING RN.
[2024-10-11] MEDS ORDERED: Apixaban 5 MG Tab PO SCH (18:00)
[2024-10-12] VITALS (24 sets, daily range): BP systolic 101–138; BP diastolic 57–78
[2024-10-12 04:25] LABS: BASOPHILS ABSOLUTE AUTO 0.01 K/mm3 (0.00-0.23); BASOPHILS PERCENT AUTO 0 % (0-2); EOSINOPHILS PERCENT AUTO 0 % (0-6); Hematocrit 26.9 % (33.0-51.0); Hemoglobin 8.4 g/dL (11.5-16.0); IMMATURE GRAN ABSOLUTE AUTO 0.09 K/mm3 (0.00-0.10); IMMATURE GRAN PERCENT AUTO 1 % (0-1); LYMPHOCYTES ABSOLUTE AUTO 0.38 K/mm3 (0.84-5.20); LYMPHOCYTES PERCENT AUTO 4 % (21-46); MONOCYTES ABSOLUTE AUTO 0.53 K/mm3 (0.16-1.47); MONOCYTES PERCENT AUTO 5 % (4-13); Mean Corpuscular HGB 29.4 pg (26.0-34.0); Mean Corpuscular HGB Conc 31.2 g/dL (31.5-36.5); Mean Corpuscular Volume 94 fL (80-100); Mean Platelet Volume 10.4 fL (9.1-12.4); NEUTROPHILS ABSOLUTE AUTO 9.98 K/mm3 (1.96-9.15); NEUTROPHILS PERCENT AUTO 91 % (41-73); Platelet Count 227 K/mm3 (150-400); RDW Coefficient Variation 14.5 % (11.7-14.2); RDW Standard Deviation 49.5 fL (35.1-46.3); Red Blood Cell Count 2.86 M/mm3 (3.80-5.20); White Blood Cell Count 10.99 K/mm3 (4.00-11.30)
[2024-10-12 04:46] LABS: Albumin, Blood 2.2 g/dL (3.4-5.0); Albumin/Globulin Ratio 0.7 (0.8-1.8); Bilirubin, Total 0.4 mg/dL (0.1-1.0); Bun/Creatinine Ratio 23.6 (12.0-20.0); Calcium, Blood 8.3 mg/dL (8.5-10.1); Creatinine, Blood 1.74 mg/dL (0.40-1.00); Globulin, Blood 3.1 g/dL (2.2-4.0); Potassium, Blood 3.8 mmol/L (3.5-5.5); Total Protein, Blood 5.3 g/dL (6.4-8.2)
--- NOTE | 2024-10-12 05:23 | NUR ---
NOC SHIFT SUMMARY NO ACUTE EVENTS OVERNIGHT. PT REMAINS AOX3, UNSURE OF TIME/MONTH. PT SLEPT THROUGH THE NIGHT, REMAINS EASILY AROUSIBLE TO VOICE. PT SLEEPS AT BEDSIDE. PT POWERGLIDE SALINE LOCKED. PT LUNGS CLEAR T/O, ON 1L VIA NC W/ SATS>95%. PT SINUS FOR MOST OF NIGHT, BUT SPONTANEOUSLY CONVERTED TO AFIB, RATE OF 90-100S. BP STABLE W/ MAPS>65. PT OLIGURIC, URINE DRAINING TO GRAVITY VIA FITZGERALD CATH. PT INCONTINENT OF BOWEL AND HAD ONE LARGE, LOOSE, GREEN BM. PT AFEBRILE DURING SHIFT. PT TAKES PO MEDS W/ OUT ISSUE. USES CALL LIGHT APPROPRIATELY. PLAN OF CARE ONGOING.
[2024-10-12] MEDS ORDERED: PredniSONE 20 MG Tab PO SCH (09:00)
[2024-10-12] MEDS ORDERED: Furosemide 40 MG Tab PO SCH (09:00)
[2024-10-12] MEDS ORDERED: Famotidine 20 MG Tab PO SCH (09:00)
--- NOTE | 2024-10-12 12:27 | NUR ---
TRANSFER TO MEDICAL REPORT CALLED, ALL QUESTIONS ANSWERED. PT TAKEN TO 324 VIA BED. ALL PT BELONGINGS AND MEDS SENT WITH PT. PT SPOUSE FOLLOWED UP TO MED FLOOR ROOM.
--- NOTE | 2024-10-12 18:39 | NUR ---
PT TRANFERRED TO FLOOR AT 1225 TODAY FROM ICU. PT A&OX2, SELF, PLACE, AND SPOUSE. SR ON TELE, VSS, 1L O2 NC, NO COMPLAINTS OF PAIN. FITZGERALD REMOVED THIS AFTERNOON, NO UO SINCE, BLADDER SCAN SHOWED 90 MLS AT 1825. PT ABLE TO TRANSFER FROM ICU BED TO MEDICAL BED 1 PERSON ASSIST, STILL WEAK AND UNSTEADY. SPOUSE STATES THAT PT APPETITE IS MUCH BETTER TODAY THAN IT HAS BEEN LATELY. SPOUSE AT BEDSIDE, CALLS APPROPRIATLY.
--- NOTE | 2024-10-12 21:35 | NUR ---
HOSPITALIST CALLED TO SEE IF WE COULD D/C Q6 BS CHECKS BECAUSE PT IS NOW EATING AGAIN AND CBG AT NORMAL LEVELS NOW.
--- NOTE | 2024-10-13 02:44 | NUR ---
SHIFT SUMM: PT IS A 69 YO FULL CODE ADMITTED FOR ARF. PT IS A&OX2 -3 PT ANSWERS QUESTIONS BUT OFTEN LOOKS TO HER FOR PROMPTS OR ANSWERS. PT IS AWARE OF SELF, AND PLACE BUT HAS SOME CONFUSION. PT HAS HAD MORE OF AN APPETITE THIS SHIFT AND HAS ENJOYED A SNACK AND MORE FLUIDS. PT WAS ABLE TO USE THE BSC W/I ASSIST. SHE STILL HAS SOME WEAKNESS IN LEGS BUT WAS ABLE TO STAND AND PIVOT TO THE COMMODE. PT IS ON CONT PULSE OX AND 1LNC. PT TOOK MEDS WWW W/NO ISSUES. PATENT PICC LINE TO LANE. L ELBOW WOUND AND ON CONTACT PREC FOR MRSA IN THE WOUND. PT'S HAS REMAINED AT BEDSIDE THE WHOLE SHIFT. PT IS ON TELE SR IN THE 80'S.ABG IN THE AM TO BE DRAWN. Q6 BS CHECKS D/C'D. CALL LIGHT IN REACH AND CALLS TO MAKE NEEDS KNOWN.
--- NOTE | 2024-10-13 03:25 | NUR ---
RT REQUESTED ABG TO BE D/C'D AND HAVE AN VBG DONE INSTEAD TO CHECK CO2 LEVELS. HOSPITALIST CALLED AND OK'D.
[2024-10-13 03:31] VITALS: BP 119/66
[2024-10-13 05:16] LABS: Base Excess Venous 17.6 mmol/L; Bicarbonate Venous 38.9 mmol/L (24.0-30.0); PCO2 Venous 58.2 mmHg (38-42); pH Blood Venous 7.46 (7.34-7.37)
[2024-10-13 05:24] LABS: BASOPHILS ABSOLUTE AUTO 0.01 K/mm3 (0.00-0.23); BASOPHILS PERCENT AUTO 0 % (0-2); EOSINOPHILS PERCENT AUTO 0 % (0-6); Hematocrit 26.7 % (33.0-51.0); Hemoglobin 8.2 g/dL (11.5-16.0); IMMATURE GRAN ABSOLUTE AUTO 0.09 K/mm3 (0.00-0.10); IMMATURE GRAN PERCENT AUTO 1 % (0-1); LYMPHOCYTES ABSOLUTE AUTO 0.51 K/mm3 (0.84-5.20); LYMPHOCYTES PERCENT AUTO 5 % (21-46); MONOCYTES ABSOLUTE AUTO 0.89 K/mm3 (0.16-1.47); MONOCYTES PERCENT AUTO 9 % (4-13); Mean Corpuscular HGB 28.9 pg (26.0-34.0); Mean Corpuscular HGB Conc 30.7 g/dL (31.5-36.5); Mean Corpuscular Volume 94 fL (80-100); NEUTROPHILS ABSOLUTE AUTO 7.97 K/mm3 (1.96-9.15); NEUTROPHILS PERCENT AUTO 84 % (41-73); Platelet Count 221 K/mm3 (150-400); RDW Coefficient Variation 14.6 % (11.7-14.2); RDW Standard Deviation 49.9 fL (35.1-46.3); Red Blood Cell Count 2.84 M/mm3 (3.80-5.20); White Blood Cell Count 9.47 K/mm3 (4.00-11.30)
[2024-10-13 05:52] LABS: Bun/Creatinine Ratio 21.5 (12.0-20.0); Calcium, Blood 8.5 mg/dL (8.5-10.1); Creatinine, Blood 1.44 mg/dL (0.40-1.00); Potassium, Blood 3.2 mmol/L (3.5-5.5)
[2024-10-13 08:09] VITALS: BP 129/69
[2024-10-13] MEDS ORDERED: Potassium Chloride 20 MEQ TabCR PO SCH (09:00)
[2024-10-13 12:52] VITALS: BP 155/88
[2024-10-13 17:16] VITALS: BP 159/77
--- NOTE | 2024-10-13 17:17 | NUR ---
PT A&OX3, CONFUSED WITH DATE. CONTINUOUS PULSE OX SATTING >93 ON 1 L O2 AT REST. TRIED ROOM AIR, PT REQUESTED O2 FOR TRANSFER TO BSC. PT 1 PA TO BSC FOR 2 BMS AND URINATION. CONTINENT OF BOWEL AND BLADDER. GOOD APPITITE TODAY. WORKED WITH PHYSICAL THERAPY AND SAT IN CHAIR. SPOUSE AT BEDSIDE PARTICIPATING WITH CARE. SR IN 80-90S ON TELE, BLOOD PRESSURES INCREASING. ABLE TO MAKE NEEDS KNOWN, CALL LIGHT IN REACH.
[2024-10-13] MEDS ORDERED: AmLODIPine Besylate 5 MG Tab PO SCH (18:00)
[2024-10-13 19:02] VITALS: BP 142/75
[2024-10-13 23:37] VITALS: BP 141/81
[2024-10-14 03:48] VITALS: BP 139/81
[2024-10-14 05:40] LABS: BASOPHILS ABSOLUTE AUTO 0.01 K/mm3 (0.00-0.23); BASOPHILS PERCENT AUTO 0 % (0-2); EOSINOPHILS PERCENT AUTO 0 % (0-6); Hematocrit 28.8 % (33.0-51.0); Hemoglobin 8.9 g/dL (11.5-16.0); IMMATURE GRAN ABSOLUTE AUTO 0.17 K/mm3 (0.00-0.10); IMMATURE GRAN PERCENT AUTO 2 % (0-1); LYMPHOCYTES ABSOLUTE AUTO 0.56 K/mm3 (0.84-5.20); LYMPHOCYTES PERCENT AUTO 7 % (21-46); MONOCYTES ABSOLUTE AUTO 0.99 K/mm3 (0.16-1.47); MONOCYTES PERCENT AUTO 12 % (4-13); Mean Corpuscular HGB 28.8 pg (26.0-34.0); Mean Corpuscular HGB Conc 30.9 g/dL (31.5-36.5); Mean Corpuscular Volume 93 fL (80-100); Mean Platelet Volume 9.9 fL (9.1-12.4); NEUTROPHILS ABSOLUTE AUTO 6.41 K/mm3 (1.96-9.15); NEUTROPHILS PERCENT AUTO 79 % (41-73); Platelet Count 219 K/mm3 (150-400); RDW Coefficient Variation 14.5 % (11.7-14.2); RDW Standard Deviation 48.4 fL (35.1-46.3); Red Blood Cell Count 3.09 M/mm3 (3.80-5.20); White Blood Cell Count 8.14 K/mm3 (4.00-11.30)
[2024-10-14 05:58] LABS: Bun/Creatinine Ratio 18.3 (12.0-20.0); Calcium, Blood 8.6 mg/dL (8.5-10.1); Creatinine, Blood 1.31 mg/dL (0.40-1.00); Potassium, Blood 3.5 mmol/L (3.5-5.5)
--- NOTE | 2024-10-14 06:27 | NUR ---
SHIFT SUMMARY PT HAS BEEN RESTING COMFORTABLY IN BED OVERNIGHT. SHE HAS BEEN AOX3, PLEASANT, CALM AND COOPERATIVE. SHE HAS BEEN ON 1LNC, WITH CONTINUOUS PULSE OX. SHE HAS BEEN SATURATING 95-99%. PT HAS BEEN 1PA TO BATHROOM. HAS BEEN AT BEDSIDE. PT HAS HAD NO COMPLAINTS OVERNIGHT. NO ACUTE EVENTS OVERNIGHT.
[2024-10-14] MEDS ORDERED: Ipratropium/Albuterol SulF 2.5-0.5MG/3 ML Amp INH PRN (07:38)
[2024-10-14] MEDS ORDERED: Albuterol 2.5 MG/3 ML VIAL INH PRN (07:40)
[2024-10-14 07:55] VITALS: BP 126/78
--- NOTE | 2024-10-14 08:01 | NUR ---
ASSUMPTION OF CARE: ASSUMED CARE OF PATIENT. ASLEEP DURING SHIFT CHANGE REPORT; AWAKE @ BEDSIDE IN RECLINER. BREATHING EVEN AND UNLABORED ON 1LPM/NC AND MAINTAININ SPO2 >88% PER PULSE OX. TELE STRIP SINUS RHYTHM @ 79. BED IN LOWEST POSITION. CALL LIGHT WITHIN REACH. NO ACUTE NEEDS.
[2024-10-14] MEDS ORDERED: ELIQUIS5 M2 PO (11:14)
[2024-10-14] MEDS ORDERED: LORA10ER PO (11:20)
[2024-10-14] MEDS ORDERED: METO25ER PO (11:20)
[2024-10-14] MEDS ORDERED: DULERA INH (11:22)
[2024-10-14] MEDS ORDERED: MONT10T PO (11:24)
[2024-10-14] MEDS ORDERED: PANT20 PO (11:25)
[2024-10-14] MEDS ORDERED: POTCHL20ER PO (11:26)
[2024-10-14] MEDS ORDERED: PRED20 PO (11:28)
[2024-10-14] MEDS ORDERED: FURO20 PO (11:29)
--- NOTE | 2024-10-14 16:46 | NUR ---
DISCHARGE SUMMARY: A&Ox4. PLEASANT AND COOPERATIVE WITH CARE. CALLS APPROPRIATELY AND IS ABLE TO ADVOCATE NEEDS EFFECTIVELY. AMBULATES INDEPENDENTLY @ BASELINE; SBA c FWW WHILE HERE. CONTINENT OF BOWEL AND BLADDER; LBM YESTERDAY. MEDS WHOLE c FLUIDS. TELE NORMAL SINUS @ 79 PER RHYTHM STRIP. NO C/O PAIN OR DISCOMFORT. MAINTAINING SPO2 >88% ON 1LPM/NC PER CONTINUOUS BiOx. MEDICATIONS FAXED TO [facility]. INSTRUCTED TO FOLLOW-UP WITH PCP. LEFT FLOOR WITH ALL BELONGINGS AND DISCHARGE PACKET, ESCORTED BY THIS RN. TRANSPORTATION PROVIDED BY VIA POV.
[2024-10-15] MEDS ORDERED: Pantoprazole Sodium 20 MG Tab PO SCH (06:00)
[2024-10-15] MEDS ORDERED: Metoprolol Succinate 25 MG TABCR PO SCH (09:00)
[2024-10-18] MEDS ORDERED: Apixaban 5 MG Tab PO SCH (21:00)
== END 2024-10-14 13:34 | disposition home health service (06) | DRG 175 ==
LOC: ER 09:09 → ICUE 11:58 → ERHOLD 11:58 → ICUE 13:40 → MEDS 10-12 12:16
PROVIDERS: Emergency Medicine; Internal Medicine; ADMIT Hospitalist
PROC: 5A0935A Assistance with Respiratory Ventilation, Less than 24 Consecutive Hours, High Flow/Velocity Cannula (ICD-10-PCS; principal; 2024-10-10)
PROC: 3E033XZ Introduction of Vasopressor into Peripheral Vein, Percutaneous Approach (ICD-10-PCS; 2024-10-10)
PROC: 02HV33Z Insertion of Infusion Device into Superior Vena Cava, Percutaneous Approach (ICD-10-PCS; 2024-10-11)
PROC: B24BZZ4 Ultrasonography of Heart with Aorta, Transesophageal (ICD-10-PCS; 2024-10-11)
DX: I26.93 Single subsegmental thrombotic pulmonary embolism without acute cor pulmonale (principal); I50.33 Acute on chronic diastolic (congestive) heart failure; J96.21 Acute and chronic respiratory failure with hypoxia; J96.22 Acute and chronic respiratory failure with hypercapnia; J44.1 Chronic obstructive pulmonary disease with (acute) exacerbation; E87.29 Other acidosis; J43.9 Emphysema, unspecified; E78.5 Hyperlipidemia, unspecified; I11.0 Hypertensive heart disease with heart failure; I95.9 Hypotension, unspecified; I48.0 Paroxysmal atrial fibrillation; R53.1 Weakness; R74.01 Elevation of levels of liver transaminase levels; Z79.899 Other long term (current) drug therapy; Z79.51 Long term (current) use of inhaled steroids; Z79.2 Long term (current) use of antibiotics; Z79.52 Long term (current) use of systemic steroids; Z99.81 Dependence on supplemental oxygen; Z79.01 Long term (current) use of anticoagulants
CPT/HCPCS: 0241U; 36569; 51702; 71045; 71260; 80048; 80053; 82803; 82947; 83735; 83880; 84100; 84484; 85025; 85379; 85520; 85610; 85730; 93005; 93010; 93308; 93321; 94640; 94664; 94762; 97110; 97116; 97161; 97165; 97530; 99285-25; A9270; C1751; J0282; J1644; J1938; J2919; J3480; J7030; J7050; J7060; J7512; Q9967